=== PATIENT | male | born 1955 | race Caucasian/White ===

== ENCOUNTER 2017-11-22 10:05 | Emergency (ER) | payer MEDICAID, OTHER ==
[~2017-11-22] VITALS: Ht 175.3 cm; Wt 62.3 kg
[2017-11-22] MEDS ORDERED: UNKNOWN BP MED PO (10:46)
[2017-11-22] MEDS ORDERED: COGENTIN PO (10:46)
[2017-11-22] MEDS ORDERED: CHLO200T2 PO (10:46)
[2017-11-22] MEDS ORDERED: HALDOL PO (10:46)
[2017-11-22 10:52] LABS: MEAN CORPUSCULAR HEMOGLOBIN 31.2 pg (27.5-34.5); MEAN CORPUSCULAR HGB CONC 33.7 g/dL (33.2-36.2); MEAN CORPUSCULAR VOLUME 92.6 fL (81-97); MEAN PLATELET VOLUME 8.3 fL (7.4-10.4); PLATELET COUNT 386 x10^3/uL (130-400); RED BLOOD COUNT 4.58 x10^6/uL (4.38-5.82); RED CELL DISTRIBUTION WIDTH 13.7 % (9.4-14.8)
[2017-11-22 11:05] LABS: ALANINE AMINOTRANSFERASE 23 U/L (12-78); ALBUMIN 3.5 g/dL (3.4-5.0); ANION GAP 6 mmol/L (5-15); CALCIUM 9.1 mg/dL (8.5-10.1); CHLORIDE 98 mmol/L (98-107)
[2017-11-22 11:07] LABS: ALKALINE PHOSPHATASE 93 U/L (45-117); BILIRUBIN,TOTAL 0.6 mg/dL (0.2-1.0); CREATININE 1.06 mg/dL (0.7-1.3); TOTAL PROTEIN 8.1 g/dL (6.4-8.2)
[2017-11-22 11:09] LABS: ACETAMINOPHEN < 2 mcg/mL (10-30); SALICYLATE LEVEL < 1.7 mg/dL (2.8-20.0)
[2017-11-22 11:44] LABS: MD YES
[2017-11-22 11:46] LABS: BAND#(MANUAL) 2.04 x10^3/uL; BANDS%(MANUAL) 7 % (0-7); LYMPH#(MANUAL) 2.34 x10^3/uL (1-3.4); LYMPHS% (MANUAL) 8 % (22-44); MONOS#(MANUAL) 2.04 x10^3/uL (0.3-2.7); MONOS% (MANUAL) 7 % (2-9); SEG#(MANUAL) 22.78 x10^3/uL (1.8-6.8); SEGS% (MANUAL) 78 % (42-75)
[2017-11-22 11:48] LABS: <PLATELET ESTIMATE> ADEQUATE; <PLT MORPHOLOGY> NORMAL PLT MORPH; <RBC MORPHOLOGY> NORMAL
[2017-11-22 11:49] LABS: TOXIC GRAN 1+
[2017-11-22 12:00] LABS: AMPHETAMINE SCREEN, URINE Positive (Negative); BARBITURATE SCREEN, URINE Negative (Negative); BENZODIAZEPINE SCREEN, URINE Negative (Negative); CANNABINOID SCREEN, URINE Negative (Negative); COCAINE SCREEN, URINE Negative (Negative); METHADONE SCREEN, URINE Negative (Negative); OPIATE SCREEN, URINE Negative (Negative)
[2017-11-22 12:14] VITALS: BP 143/86
== END 2017-11-22 12:16 | disposition home or self-care (01) ==
LOC: ED 11:53
DX: F28 Other psychotic disorder not due to a substance or known physiological condition (principal); Z91.14 Patient's other noncompliance with medication regimen; Z88.0 Allergy status to penicillin; Z88.5 Allergy status to narcotic agent
CPT/HCPCS: 36415; 80053; 80307; 80329; 85025; 99284; G0480

== ENCOUNTER 2017-11-24 06:57 | Emergency (ER) | payer MEDICAID ==
[~2017-11-24] VITALS: Ht 175.3 cm; Wt 61.0 kg
[~2017-11-24 06:57] MED LIST: CHLO200T2 PO; COGENTIN PO; HALDOL PO; UNKNOWN BP MED PO
[2017-11-24 06:59] VITALS: BP 102/70
== END 2017-11-24 07:58 | disposition home or self-care (01) ==
LOC: ED 07:56
DX: J34.0 Abscess, furuncle and carbuncle of nose (principal); F20.9 Schizophrenia, unspecified
CPT/HCPCS: 93005; 99283

== ENCOUNTER 2018-01-08 12:45 | Observation (INO) | payer MEDICAID ==
[~2018-01-08] VITALS: Ht 172.7 cm; Wt 61.8 kg
[2018-01-08 13:30] LABS: BASOPHILS # (AUTO) 0.05 x10^3/uL (0-0.1); BASOPHILS % (AUTO) 1 % (0-1); EOSINOPHILS # (AUTO) 0.19 x10^3/uL (0-0.4); EOSINOPHILS % (AUTO) 2 % (1-7); LYMPHOCYTES # (AUTO) 2.07 x10^3/uL (1-3.4); LYMPHOCYTES % (AUTO) 22 % (22-44); MD NO; MEAN CORPUSCULAR HGB CONC 33.3 g/dL (32.4-35.8); MEAN CORPUSCULAR VOLUME 89.9 fL (80-100); MEAN PLATELET VOLUME 8.2 fL (7.4-10.4); MONOCYTES # (AUTO) 0.99 x10^3/uL (0.2-0.8); MONOCYTES % (AUTO) 10 % (2-9); NEUTROPHILS # (AUTO) 6.23 x10^3/uL (1.8-6.8); NEUTROPHILS % (AUTO) 65 % (42-75); PLATELET COUNT 333 x10^3/uL (130-400); RED CELL DISTRIBUTION WIDTH 13.8 % (9.6-15.2)
[2018-01-08 13:41] LABS: ALBUMIN 3.2 g/dL (3.4-5.0); ANION GAP 8 mmol/L (5-15); CHLORIDE 106 mmol/L (98-107); CREATININE 0.84 mg/dL (0.55-1.02); SALICYLATE LEVEL < 1.7 mg/dL (2.8-20.0)
[2018-01-08 13:45] LABS: ACETAMINOPHEN < 2 mcg/mL (10-30)
[2018-01-08] MEDS ORDERED: LORazepam 1MG TABLET ONE (18:01)
[2018-01-08] MEDS ORDERED: LORazepam 1MG TABLET PO ONE (18:30)
[2018-01-08 19:43] LABS: AMPHETAMINE SCREEN, URINE Positive (Negative); BARBITURATE SCREEN, URINE Negative (Negative); BENZODIAZEPINE SCREEN, URINE Negative (Negative); CANNABINOID SCREEN, URINE Negative (Negative); COCAINE SCREEN, URINE Negative (Negative); METHADONE SCREEN, URINE Negative (Negative); OPIATE SCREEN, URINE Negative (Negative)
[2018-01-08] MEDS ORDERED: LORazepam 2 MG/ML, 1ML IM PRN (20:30)
[2018-01-08] MEDS ORDERED: DOCUSATE 100 MG CAPSULE PO PRN (20:30)
[2018-01-08] MEDS ORDERED: ONDANSETRON ODT 4 MG PO PRN (20:30)
[2018-01-08] MEDS ORDERED: ACETAMINOPHEN 325 MG TABLET PO PRN (20:30)
[2018-01-08] MEDS ORDERED: LORazepam 1MG TABLET PO PRN (20:30)
[2018-01-08 20:42] VITALS: BP 126/79
[2018-01-08 20:47] LABS: FREE T4 (FREE THYROXINE) 1.08 ng/dL (0.76-1.46); THYROID STIMULATING HORMONE 0.968 mIU/L (0.358-3.740)
[2018-01-08 21:37] LABS: MICROSCOPIC INDICATED
[2018-01-08 21:45] LABS: CULTURE INDICATED? NO
[2018-01-09 07:52] VITALS: BP 117/81
== END 2018-01-09 13:10 ==
LOC: EDBD 12:45 → ED 16:12 → EDSEX 19:01 → INTOOBSV 19:01 → EDIP 19:01 → 2N 20:37
PROVIDERS: ADMIT Internal Medicine; ATTEND Internal Medicine
DX: F23 Brief psychotic disorder (principal); F15.90 Other stimulant use, unspecified, uncomplicated; I10 Essential (primary) hypertension; I25.10 Atherosclerotic heart disease of native coronary artery without angina pectoris; R45.851 Suicidal ideations; F20.0 Paranoid schizophrenia; F17.200 Nicotine dependence, unspecified, uncomplicated; Z95.5 Presence of coronary angioplasty implant and graft; Z91.14 Patient's other noncompliance with medication regimen
CPT/HCPCS: 36415; 80048; 80307; 80329; 81001; 82040; 84439; 84443; 85025; 99285; G0378; G0480

== ENCOUNTER 2019-01-07 03:04 | Emergency (ER) | payer MEDICAID ==
[~2019-01-07] VITALS: Ht 177.8 cm; Wt 60.7 kg
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
[2019-01-07] MEDS ORDERED: NITR0.4T28 SL (03:27)
--- NOTE | 2019-01-07 03:45 | NUR ---
PROVIDED PT WITH URINE CUP, PT STATED HE JUST VOIDED AND UNABLE TO PROVIDE SAMPLE AT THIS TIME
[2019-01-07 04:30] LABS: ALANINE AMINOTRANSFERASE 33 U/L (12-78); ALBUMIN 3.3 g/dL (3.4-5.0); ANION GAP 6 mmol/L (5-15); CALCIUM 8.5 mg/dL (8.5-10.1); CHLORIDE 108 mmol/L (98-107); CREATININE 0.81 mg/dL (0.7-1.3)
[2019-01-07 04:34] LABS: ALKALINE PHOSPHATASE 74 U/L (45-117); BILIRUBIN,TOTAL 0.2 mg/dL (0.2-1.0); TOTAL PROTEIN 6.8 g/dL (6.4-8.2); TROPONIN I < 0.015 ng/mL (0.000-0.045)
--- NOTE | 2019-01-07 04:39 | NUR ---
PT RESTING ON GURNEY WITH EYES CLOSED, DENIES PAIN OR NEEDS, PT STATED HE IS STILL NOT ABLE TO VOID AT THIS TIME, MONITORS IN PLACE, CALL LIGHT WITHIN REACH. PA UPDATED REGARDING PT NOT ABLE TO PROVIDE URINE SAMPLE
[2019-01-07 04:51] LABS: BASOPHILS # (AUTO) 0.04 x10^3/uL (0-0.1); BASOPHILS % (AUTO) 1 % (0-1); EOSINOPHILS # (AUTO) 0.24 x10^3/uL (0-0.4); EOSINOPHILS % (AUTO) 3 % (1-7); LYMPHOCYTES # (AUTO) 1.97 x10^3/uL (1-3.4); LYMPHOCYTES % (AUTO) 23 % (22-44); MD NO; MEAN CORPUSCULAR HEMOGLOBIN 29.5 pg (27.5-34.5); MEAN CORPUSCULAR HGB CONC 32.3 g/dL (33.2-36.2); MEAN CORPUSCULAR VOLUME 91.3 fL (81-97); MEAN PLATELET VOLUME 8.6 fL (7.4-10.4); MONOCYTES % (AUTO) 9 % (2-9); NEUTROPHILS # (AUTO) 5.66 x10^3/uL (1.8-6.8); NEUTROPHILS % (AUTO) 65 % (42-75); PLATELET COUNT 393 x10^3/uL (130-400); RED BLOOD COUNT 3.89 x10^6/uL (4.38-5.82); RED CELL DISTRIBUTION WIDTH 16.8 % (9.4-14.8)
--- NOTE | 2019-01-07 05:05 | NUR ---
REPORT GIVEN TO SOPHIE RN
[2019-01-07 05:09] VITALS: BP 125/75
[2019-01-07 05:21] LABS: AMPHETAMINE SCREEN, URINE Positive (Negative); BARBITURATE SCREEN, URINE Negative (Negative); BENZODIAZEPINE SCREEN, URINE Negative (Negative); CANNABINOID SCREEN, URINE Negative (Negative); COCAINE SCREEN, URINE Negative (Negative); METHADONE SCREEN, URINE Negative (Negative); OPIATE SCREEN, URINE Negative (Negative)
--- NOTE | 2019-01-07 05:41 | NUR ---
THE PT WAS GIVEN BREADFAST BEFORE D/C.
--- NOTE | 2019-01-07 05:42 | NUR ---
THE PT WAS GIVEN D/C INST AND INST NOT TO DO DRUGS. THE PT VERB UNDERSTANDING. THE PT SARAH. PO INTAKE AND IS CP FREE AT THIS TIME. 0/10 PAIN.
== END 2019-01-07 06:09 | disposition home or self-care (01) ==
LOC: ED 05:09
DX: R07.89 Other chest pain (principal); F15.20 Other stimulant dependence, uncomplicated; Z72.9 Problem related to lifestyle, unspecified; F17.200 Nicotine dependence, unspecified, uncomplicated
CPT/HCPCS: 36415; 71046; 80053; 80307; 84484; 85025; 93005; 99284

== ENCOUNTER 2019-04-26 19:32 | Emergency (ER) | payer MEDICAID ==
[~2019-04-26] VITALS: Ht 172.7 cm; Wt 63.7 kg
[~2019-04-26 19:32] MED LIST changes: +NITR0.4T28 SL
--- NOTE | 2019-04-26 19:51 | NUR ---
pt called to room from lobby
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
[2019-04-26] MEDS ORDERED: ONDANSETRON ODT 4 MG ONE (21:29)
--- NOTE | 2019-04-26 21:37 | NUR ---
PT MEDICATED FOR NAUSEA ORDERED.
[2019-04-26 21:39] VITALS: BP 133/84
--- NOTE | 2019-04-26 21:46 | NUR ---
PT REPORTS IS FEELING BETTER S/P ZOFRAN
[2019-04-26] MEDS ORDERED: ONDANSETRON ODT 4 MG PO ONE (22:00)
--- NOTE | 2019-04-26 22:33 | NUR ---
REVIEWED DISCHARGE INSTRUCTIONS AND PRINTED PRESCRIPTION X 1 W/ PT, VERBALIZED UNDERSTANDING TO INFORMATION PROVIDED INCLUDING FOLLOW UP CARE AND RETURN PRECAUTIONS. PT DENIED HEARING VOICES AT TIME OF DISCHARGE, REPORTED NAUSEA HAD IMPROVED. PT AMBULATED FROM ED.
== END 2019-04-26 22:38 | disposition home or self-care (01) ==
LOC: ED 22:32
DX: F15.129 Other stimulant abuse with intoxication, unspecified (principal); F11.129 Opioid abuse with intoxication, unspecified; R11.0 Nausea; R61 Generalized hyperhidrosis; F20.9 Schizophrenia, unspecified; F17.200 Nicotine dependence, unspecified, uncomplicated; Z88.0 Allergy status to penicillin; Z88.5 Allergy status to narcotic agent
CPT/HCPCS: 99283; Q0162

== ENCOUNTER 2019-05-08 17:41 | Inpatient (IN) | payer MEDICAID ==
[~2019-05-08] VITALS: Ht 172.7 cm; Wt 62.1 kg
--- NOTE | 2019-05-08 17:52 | NUR ---
PT BIB EMS FROM [facility], CHECKED IN THIS AM FOR METH AND HEROIN WITHDRAWL, LAST USE THIS AM. PT WAS FOUND TO HAVE ROOM AIR SATS MID 80'S PLACED ON 2L NC O2 SAT 95. PT STS "I GOTTA GET CLEAN I HAVE NO CHOICE." PT ALSO REPORTS PNA DX 2WKS AGO BUT REFUSED TX Addendum: 05/08/19 at 1838 by [email or web address] PT BERRYIES SI/HI
--- NOTE | 2019-05-08 18:02 | NUR ---
PER MENTAL HEALTH TECH WITH PT, PT HAD FEVER OF 101.3 PT WAS GIVEN TYLENOL BUT UNSURE OF DOSAGE.
[2019-05-08] MEDS ORDERED: KETOROLAC 30 MG/1 ML ONE (18:12)
--- NOTE | 2019-05-08 18:14 | NUR ---
PT TO XRAY LABS DRAWN AND SENT TO LAB
--- NOTE | 2019-05-08 18:14 | NUR ---
SPOKE WITH MD ABOUT PT O2 DEMAND, PER MD HOLD ATIVAN AND MORPHINE AT THIS TIME
[2019-05-08 18:25] LABS: MEAN CORPUSCULAR HEMOGLOBIN 28.8 pg (27.5-34.5); MEAN CORPUSCULAR HGB CONC 32.7 g/dL (33.2-36.2); MEAN CORPUSCULAR VOLUME 87.9 fL (81-97); MEAN PLATELET VOLUME 8.5 fL (7.4-10.4); PLATELET COUNT 311 x10^3/uL (130-400); RED BLOOD COUNT 4.19 x10^6/uL (4.38-5.82)
[2019-05-08] MEDS: KETOROLAC 30 MG/1 ML IVPush ONE ×2 (18:28→18:37)
[2019-05-08] MEDS ORDERED: LORazepam 2 MG/ML, 1ML IVPush ONE (18:30)
[2019-05-08] MEDS ORDERED: SODIUM CHLORIDE 0.9% 1,000ML IVBOLUS ONE (18:30)
[2019-05-08] MEDS ORDERED: SODIUM CHLORIDE FLUSH 10ML SYR IVF ONE (18:30)
[2019-05-08] MEDS ORDERED: MORPHINE SULFATE 4 MG/ML, 1ML IVPush PRN (18:30)
--- NOTE | 2019-05-08 18:30 | NUR ---
PT REFUSED TORODOL AT THIS TIME. STS "THAT DOESN'T DO SHIT, I WANT SOMETHING ELSE."
[2019-05-08 18:32] LABS: ALANINE AMINOTRANSFERASE 23 U/L (12-78); ALBUMIN 3.3 g/dL (3.4-5.0); ANION GAP 5 mmol/L (5-15); CALCIUM 8.8 mg/dL (8.5-10.1); CHLORIDE 98 mmol/L (98-107); CREATININE 1.13 mg/dL (0.7-1.3)
[2019-05-08 18:36] LABS: ALKALINE PHOSPHATASE 74 U/L (45-117); BILIRUBIN,TOTAL 0.6 mg/dL (0.2-1.0); TOTAL PROTEIN 7.4 g/dL (6.4-8.2); TROPONIN I < 0.015 ng/mL (0.000-0.045)
[2019-05-08 18:57] LABS: MD YES
[2019-05-08 18:59] LABS: BAND#(MANUAL) 1.09 x10^3/uL; BANDS%(MANUAL) 6 % (0-7); LYMPHS% (MANUAL) 11 % (22-44); MONOS#(MANUAL) 1.09 x10^3/uL (0.3-2.7); MONOS% (MANUAL) 6 % (2-9); SEG#(MANUAL) 14.01 x10^3/uL (1.8-6.8); SEGS% (MANUAL) 77 % (42-75)
[2019-05-08 19:00] LABS: ANISOCYTOSIS 1+
[2019-05-08] MEDS ORDERED: CEFTRIAXONE PMX 1GM/50ML 50 ML IVPB ONE (19:00)
[2019-05-08] MEDS ORDERED: AZITHROMYCIN 500 MG in SODIUM CHLORIDE 0.9% 250 ML IVPB ONE (19:00)
[2019-05-08 19:01] LABS: <PLATELET ESTIMATE> ADEQUATE; <PLT MORPHOLOGY> NORMAL PLT MORPH; PMNS WITH VACUOLES 1+; TOXIC GRAN 1+
[2019-05-08] MEDS ORDERED: CEFTRIAXONE PMX 1GM/50ML 50 ML ONE (19:21)
[2019-05-08] MEDS ORDERED: IBUPROFEN 600 MG TABLET PO PRN (20:30)
[2019-05-08] MEDS ORDERED: ACETAMINOPHEN 325 MG TABLET PO PRN (20:30)
[2019-05-08] MEDS ORDERED: ONDANSETRON 2MG/ML, 2ML IVPush PRN (20:30)
[2019-05-08] MEDS ORDERED: OXYcodone/APAP 5/325MG TABLET PO PRN (20:30)
[2019-05-08] MEDS ORDERED: PROMETHAZINE 25 MG/ML, 1ML IM PRN (20:30)
[2019-05-08] MEDS ORDERED: hydrALAzine 20 MG/ML, 1ML IVPush PRN (20:30)
[2019-05-08 20:43] VITALS: BP 102/55
[2019-05-08] MEDS: AZITHROMYCIN 500 MG in SODIUM CHLORIDE 0.9% 250 ML IV SCH (21:06)
[2019-05-08] MEDS ORDERED: WARF1TAB PO (21:54)
[2019-05-09] MEDS: NICOTINE 21 MG/24 HR PATCH.TD24 TD SCH ×2 (00:30→20:18)
[2019-05-09] MEDS: ENOXAPARIN 40 MG/0.4 ML SQ SCH ×2 (00:30→20:18)
[2019-05-09 01:00] VITALS: BP 105/63
[2019-05-09 01:02] LABS: AMPHETAMINE SCREEN, URINE Positive (Negative); BARBITURATE SCREEN, URINE Negative (Negative); BENZODIAZEPINE SCREEN, URINE Negative (Negative); CANNABINOID SCREEN, URINE Negative (Negative); COCAINE SCREEN, URINE Negative (Negative); METHADONE SCREEN, URINE Negative (Negative); OPIATE SCREEN, URINE Negative (Negative)
[2019-05-09 01:05] LABS: RAPID INFLUENZA A Negative (Negative); RAPID INFLUENZA B Negative (Negative)
[2019-05-09 06:15] LABS: BASOPHILS # (AUTO) 0.02 x10^3/uL (0-0.1); BASOPHILS % (AUTO) 0 % (0-1); EOSINOPHILS # (AUTO) 0.01 x10^3/uL (0-0.4); EOSINOPHILS % (AUTO) 0 % (1-7); LYMPHOCYTES # (AUTO) 1.75 x10^3/uL (1-3.4); LYMPHOCYTES % (AUTO) 12 % (22-44); MD NO; MEAN CORPUSCULAR HEMOGLOBIN 28.6 pg (27.5-34.5); MEAN CORPUSCULAR HGB CONC 32.3 g/dL (33.2-36.2); MEAN CORPUSCULAR VOLUME 88.5 fL (81-97); MEAN PLATELET VOLUME 8.9 fL (7.4-10.4); MONOCYTES # (AUTO) 0.95 x10^3/uL (0.2-0.8); MONOCYTES % (AUTO) 7 % (2-9); NEUTROPHILS # (AUTO) 11.59 x10^3/uL (1.8-6.8); NEUTROPHILS % (AUTO) 81 % (42-75); PLATELET COUNT 275 x10^3/uL (130-400); RED BLOOD COUNT 3.89 x10^6/uL (4.38-5.82); RED CELL DISTRIBUTION WIDTH 18.1 % (9.4-14.8)
[2019-05-09 06:30] LABS: ANION GAP 2 mmol/L (5-15); CALCIUM 8.5 mg/dL (8.5-10.1); CHLORIDE 104 mmol/L (98-107); CREATININE 0.88 mg/dL (0.7-1.3)
[2019-05-09 07:24] VITALS: BP 108/67
[2019-05-09] MEDS: CEFTRIAXONE PMX 1GM/50ML 50 ML IV SCH (08:24)
[2019-05-09] MEDS: ASPIRIN 325 MG TABLET EC PO SCH (08:24)
[2019-05-09] MEDS: GUAIFENESIN 200 MG TABLET PO SCH ×3 (12:00→20:17)
[2019-05-09 13:22] VITALS: BP 97/55
[2019-05-09 14:34] VITALS: BP 99/56
[2019-05-09 19:33] VITALS: BP 110/73
[2019-05-09] MEDS: AZITHROMYCIN 500 MG in SODIUM CHLORIDE 0.9% 250 ML IV SCH (20:17)
[2019-05-10 00:25] VITALS: BP 110/67
[2019-05-10] MEDS: ASPIRIN 325 MG TABLET EC PO SCH (05:43)
[2019-05-10] MEDS: GUAIFENESIN 200 MG TABLET PO SCH ×4 (05:43→22:25)
[2019-05-10 05:49] LABS: CHLORIDE 105 mmol/L (98-107)
[2019-05-10 05:52] LABS: BASOPHILS # (AUTO) 0.02 x10^3/uL (0-0.1); BASOPHILS % (AUTO) 0 % (0-1); EOSINOPHILS # (AUTO) 0.19 x10^3/uL (0-0.4); EOSINOPHILS % (AUTO) 2 % (1-7); LYMPHOCYTES % (AUTO) 14 % (22-44); MD NO; MEAN CORPUSCULAR HEMOGLOBIN 28.4 pg (27.5-34.5); MEAN CORPUSCULAR HGB CONC 32.1 g/dL (33.2-36.2); MEAN CORPUSCULAR VOLUME 88.3 fL (81-97); MEAN PLATELET VOLUME 9.1 fL (7.4-10.4); MONOCYTES # (AUTO) 0.79 x10^3/uL (0.2-0.8); MONOCYTES % (AUTO) 10 % (2-9); NEUTROPHILS # (AUTO) 5.82 x10^3/uL (1.8-6.8); NEUTROPHILS % (AUTO) 73 % (42-75); PLATELET COUNT 246 x10^3/uL (130-400); RED BLOOD COUNT 3.89 x10^6/uL (4.38-5.82); RED CELL DISTRIBUTION WIDTH 17.2 % (9.4-14.8)
[2019-05-10 05:57] LABS: ALANINE AMINOTRANSFERASE 23 U/L (12-78); ALBUMIN 2.7 g/dL (3.4-5.0); ALKALINE PHOSPHATASE 67 U/L (45-117); ANION GAP 7 mmol/L (5-15); BILIRUBIN,TOTAL 0.4 mg/dL (0.2-1.0); CALCIUM 8.3 mg/dL (8.5-10.1); CREATININE 0.76 mg/dL (0.7-1.3); TOTAL PROTEIN 6.9 g/dL (6.4-8.2)
[2019-05-10 07:30] VITALS: BP 92/54
[2019-05-10] MEDS: CEFTRIAXONE PMX 1GM/50ML 50 ML IV SCH (08:20)
[2019-05-10 13:49] VITALS: BP_SYST 108; BP_SYST 128; BP_DIAS 74; BP_DIAS 76
[2019-05-10 19:23] VITALS: BP 121/68
[2019-05-10] MEDS: NICOTINE 21 MG/24 HR PATCH.TD24 TD SCH (19:37)
[2019-05-10] MEDS: AZITHROMYCIN 500 MG in SODIUM CHLORIDE 0.9% 250 ML IV SCH (20:24)
[2019-05-10] MEDS: ENOXAPARIN 40 MG/0.4 ML SQ SCH (20:24)
[2019-05-11 03:09] VITALS: BP 121/76
[2019-05-11 04:38] LABS: BASOPHILS # (AUTO) 0.03 x10^3/uL (0-0.1); BASOPHILS % (AUTO) 1 % (0-1); EOSINOPHILS # (AUTO) 0.28 x10^3/uL (0-0.4); EOSINOPHILS % (AUTO) 5 % (1-7); LYMPHOCYTES # (AUTO) 1.69 x10^3/uL (1-3.4); LYMPHOCYTES % (AUTO) 33 % (22-44); MD NO; MEAN CORPUSCULAR HEMOGLOBIN 28.2 pg (27.5-34.5); MEAN CORPUSCULAR HGB CONC 32.1 g/dL (33.2-36.2); MEAN CORPUSCULAR VOLUME 87.6 fL (81-97); MEAN PLATELET VOLUME 8.8 fL (7.4-10.4); MONOCYTES # (AUTO) 0.71 x10^3/uL (0.2-0.8); MONOCYTES % (AUTO) 14 % (2-9); NEUTROPHILS # (AUTO) 2.48 x10^3/uL (1.8-6.8); NEUTROPHILS % (AUTO) 48 % (42-75); PLATELET COUNT 268 x10^3/uL (130-400); RED BLOOD COUNT 3.87 x10^6/uL (4.38-5.82); RED CELL DISTRIBUTION WIDTH 17.1 % (9.4-14.8)
[2019-05-11 04:43] LABS: ALBUMIN 2.7 g/dL (3.4-5.0); ANION GAP 5 mmol/L (5-15); CALCIUM 8.3 mg/dL (8.5-10.1); CHLORIDE 104 mmol/L (98-107)
[2019-05-11 04:45] LABS: CREATININE 0.78 mg/dL (0.7-1.3)
[2019-05-11] MEDS: ASPIRIN 325 MG TABLET EC PO SCH (07:03)
[2019-05-11] MEDS: GUAIFENESIN 200 MG TABLET PO SCH ×4 (07:03→21:28)
[2019-05-11] MEDS: CEFTRIAXONE PMX 1GM/50ML 50 ML IV SCH (07:23)
[2019-05-11 07:25] VITALS: BP 123/78
[2019-05-11] MEDS: ASPIRIN 81 MG TABLET EC PO SCH (11:33)
[2019-05-11] MEDS ORDERED: OMNIPAQUE 350 MG/ML, 100ML BOTTLE ONE (13:21)
[2019-05-11 13:34] LABS: MICROSCOPIC INDICATED
[2019-05-11 14:00] LABS: CULTURE INDICATED? NO
[2019-05-11 14:22] VITALS: BP 122/73
[2019-05-11] MEDS: CARVEDILOL 3.125 MG TABLET PO SCH (18:26)
[2019-05-11 19:10] VITALS: BP 101/65
[2019-05-11] MEDS: CEFTRIAXONE PMX 2GM/50ML 50 ML IV SCH (19:32)
[2019-05-11] MEDS: ENOXAPARIN 40 MG/0.4 ML SQ SCH (20:17)
[2019-05-11] MEDS: AZITHROMYCIN 500 MG in SODIUM CHLORIDE 0.9% 250 ML IV SCH (20:17)
[2019-05-11] MEDS: NICOTINE 21 MG/24 HR PATCH.TD24 TD SCH (20:18)
[2019-05-11] MEDS: ATORVASTATIN 20 MG TABLET PO SCH (21:28)
[2019-05-12 02:46] VITALS: BP 105/62
[2019-05-12 05:41] LABS: CHLORIDE 106 mmol/L (98-107)
[2019-05-12 05:44] LABS: MEAN CORPUSCULAR HEMOGLOBIN 28.2 pg (27.5-34.5); MEAN CORPUSCULAR HGB CONC 32.4 g/dL (33.2-36.2); MEAN CORPUSCULAR VOLUME 87.3 fL (81-97); PLATELET COUNT 284 x10^3/uL (130-400); RED BLOOD COUNT 3.96 x10^6/uL (4.38-5.82); RED CELL DISTRIBUTION WIDTH 17.4 % (9.4-14.8)
[2019-05-12 05:52] LABS: ALANINE AMINOTRANSFERASE 27 U/L (12-78); ALBUMIN 2.7 g/dL (3.4-5.0); ALKALINE PHOSPHATASE 64 U/L (45-117); ANION GAP 7 mmol/L (5-15); BILIRUBIN,TOTAL 0.2 mg/dL (0.2-1.0); CALCIUM 8.7 mg/dL (8.5-10.1); CREATININE 0.72 mg/dL (0.7-1.3); TOTAL PROTEIN 7.2 g/dL (6.4-8.2)
[2019-05-12] MEDS: ASPIRIN 81 MG TABLET EC PO SCH (05:55)
[2019-05-12] MEDS: CARVEDILOL 3.125 MG TABLET PO SCH ×2 (05:55→18:49)
[2019-05-12] MEDS: GUAIFENESIN 200 MG TABLET PO SCH ×4 (05:55→23:00)
[2019-05-12 06:14] VITALS: BP 121/75
[2019-05-12 06:20] LABS: BASOPHILS # (AUTO) 0.02 x10^3/uL (0-0.1); BASOPHILS % (AUTO) 1 % (0-1); EOSINOPHILS # (AUTO) 0.43 x10^3/uL (0-0.4); EOSINOPHILS % (AUTO) 12 % (1-7); LYMPHOCYTES # (AUTO) 1.51 x10^3/uL (1-3.4); LYMPHOCYTES % (AUTO) 42 % (22-44); MD SCAN; MONOCYTES # (AUTO) 0.48 x10^3/uL (0.2-0.8); MONOCYTES % (AUTO) 13 % (2-9); NEUTROPHILS % (AUTO) 33 % (42-75)
[2019-05-12 13:20] VITALS: BP 106/67
[2019-05-12 19:15] VITALS: BP 102/62
[2019-05-12] MEDS ORDERED: LORazepam 0.5MG TABLET PO PRN (19:30)
[2019-05-12] MEDS: CEFTRIAXONE PMX 2GM/50ML 50 ML IV SCH (19:45)
[2019-05-12] MEDS: ATORVASTATIN 20 MG TABLET PO SCH (20:23)
[2019-05-12] MEDS: AZITHROMYCIN 500 MG in SODIUM CHLORIDE 0.9% 250 ML IV SCH (20:23)
[2019-05-12] MEDS: ENOXAPARIN 40 MG/0.4 ML SQ SCH (20:24)
[2019-05-12] MEDS: NICOTINE 21 MG/24 HR PATCH.TD24 TD SCH (20:28)
[2019-05-13 01:09] VITALS: BP 112/71
[2019-05-13 05:07] LABS: ALBUMIN 2.6 g/dL (3.4-5.0); ANION GAP 3 mmol/L (5-15); BASOPHILS # (AUTO) 0.03 x10^3/uL (0-0.1); BASOPHILS % (AUTO) 1 % (0-1); CALCIUM 8.6 mg/dL (8.5-10.1); CHLORIDE 109 mmol/L (98-107); EOSINOPHILS # (AUTO) 0.64 x10^3/uL (0-0.4); EOSINOPHILS % (AUTO) 15 % (1-7); LYMPHOCYTES # (AUTO) 1.99 x10^3/uL (1-3.4); LYMPHOCYTES % (AUTO) 47 % (22-44); MD NO; MEAN CORPUSCULAR HEMOGLOBIN 28.7 pg (27.5-34.5); MEAN CORPUSCULAR VOLUME 89.7 fL (81-97); MEAN PLATELET VOLUME 8.7 fL (7.4-10.4); MONOCYTES # (AUTO) 0.49 x10^3/uL (0.2-0.8); MONOCYTES % (AUTO) 12 % (2-9); NEUTROPHILS # (AUTO) 1.06 x10^3/uL (1.8-6.8); NEUTROPHILS % (AUTO) 25 % (42-75); PLATELET COUNT 322 x10^3/uL (130-400); RED BLOOD COUNT 4.03 x10^6/uL (4.38-5.82); RED CELL DISTRIBUTION WIDTH 16.7 % (9.4-14.8)
[2019-05-13 05:12] LABS: ALANINE AMINOTRANSFERASE 34 U/L (12-78); ALKALINE PHOSPHATASE 61 U/L (45-117); BILIRUBIN,TOTAL 0.2 mg/dL (0.2-1.0); CREATININE 0.75 mg/dL (0.7-1.3); TOTAL PROTEIN 6.9 g/dL (6.4-8.2)
[2019-05-13] MEDS: GUAIFENESIN 200 MG TABLET PO SCH ×2 (06:22→10:34)
[2019-05-13] MEDS: CARVEDILOL 3.125 MG TABLET PO SCH (06:22)
[2019-05-13] MEDS: ASPIRIN 81 MG TABLET EC PO SCH (06:22)
[2019-05-13 07:30] VITALS: BP 117/74
[2019-05-13] MEDS ORDERED: CEFTRIAXONE PMX 2GM/50ML 50 ML IV SCH (08:30)
[2019-05-13] MEDS ORDERED: AZITHROMYCIN 500 MG in SODIUM CHLORIDE 0.9% 250 ML IV SCH (08:30)
[2019-05-13] MEDS ORDERED: ATOR20TA37 PO (08:39)
[2019-05-13] MEDS ORDERED: ASPI81TA45 PO (08:39)
[2019-05-13] MEDS ORDERED: DOXY100C2 PO (08:39)
[2019-05-13] MEDS ORDERED: CEFD300C37 PO (08:39)
[2019-05-13] MEDS ORDERED: GUAI200T37 PO (08:39)
[2019-05-13] MEDS ORDERED: CARV3.1212 PO (08:39)
== END 2019-05-13 11:30 | disposition home or self-care (01) | DRG 193 ==
LOC: ED 18:12 → EDIP 18:59 → 3N 19:35 → DCLOUNGE 05-13 11:08
PROVIDERS: ADMIT Family Medicine; ATTEND Family Medicine
DX: J15.9 Unspecified bacterial pneumonia (principal); J96.01 Acute respiratory failure with hypoxia; E87.1 Hypo-osmolality and hyponatremia; D64.9 Anemia, unspecified; F11.90 Opioid use, unspecified, uncomplicated; F15.90 Other stimulant use, unspecified, uncomplicated; F17.210 Nicotine dependence, cigarettes, uncomplicated; F20.9 Schizophrenia, unspecified; I25.10 Atherosclerotic heart disease of native coronary artery without angina pectoris; I25.2 Old myocardial infarction; Z88.6 Allergy status to analgesic agent; Z88.0 Allergy status to penicillin; Z79.01 Long term (current) use of anticoagulants; Z82.49 Family history of ischemic heart disease and other diseases of the circulatory system; Z86.718 Personal history of other venous thrombosis and embolism; Z86.73 Personal history of transient ischemic attack (TIA), and cerebral infarction without residual deficits; Z91.14 Patient's other noncompliance with medication regimen; Z95.5 Presence of coronary angioplasty implant and graft
CPT/HCPCS: 36415; 71046; 71275; 80048; 80053; 80307; 81001; 82040; 83605; 83735; 83880; 84100; 84145; 84484; 85025; 87040; 87070; 87205; 87400; 93005; 93306; G0378; J0456; J0696; J1650; J1885; Q9967; J7030; J7050

== ENCOUNTER 2019-06-15 01:19 | Emergency (ER) | payer MEDICAID ==
[~2019-06-15] VITALS: Ht 172.7 cm; Wt 60.5 kg
[~2019-06-15 01:19] MED LIST changes: +ASPI81TA45 PO; +ATOR20TA37 PO; +CARV3.1212 PO; +CEFD300C37 PO; +DOXY100C2 PO; +GUAI200T37 PO; +WARF1TAB PO
[2019-06-15 01:25] VITALS: BP 115/83
== END 2019-06-15 03:19 | disposition home or self-care (01) ==
LOC: ED 01:37
DX: J20.9 Acute bronchitis, unspecified (principal); J44.0 Chronic obstructive pulmonary disease with (acute) lower respiratory infection; F17.210 Nicotine dependence, cigarettes, uncomplicated; I25.2 Old myocardial infarction
CPT/HCPCS: 71046; 93005; 99283

== ENCOUNTER 2019-08-19 02:03 | Emergency (ER) | payer MEDICAID ==
[~2019-08-19] VITALS: Ht 175.3 cm; Wt 62.0 kg
--- NOTE | 2019-08-19 03:26 | NUR ---
Patient presents to ER c/o bilat rib pain and neck pain post fall down stairs. Patient states he drank copious amounts of alcohol, which is not normal for him, and fell from being drunk. Patient states positive LOC. Patient is in NAD. Respirations even and unlabored.
[2019-08-19] MEDS ORDERED: ACETAMINOPHEN 500 MG TABLET ONE (04:17)
[2019-08-19] MEDS ORDERED: ACETAMINOPHEN 500 MG TABLET PO ONE (04:30)
[2019-08-19 04:38] VITALS: BP 155/95
--- NOTE | 2019-08-19 04:38 | NUR ---
Patient c/o pain. Offered Tylenol for pain per mar and patient refused.
[2019-08-19] MEDS ORDERED: DEXAMETHASONE 4 MG TABLET ONE (05:18)
[2019-08-19] MEDS ORDERED: DEXAMETHASONE 4 MG/ML, 5ML ONE (05:20)
--- NOTE | 2019-08-19 06:41 | NUR ---
Patient denied the need for IS or Toradol. Discharge instructions given. All questions and concerns addressed. Patient ambulatory with a steady gait. Belongings with patient.
[2019-08-19] MEDS ORDERED: KETOROLAC 30 MG/1 ML IM ONE (07:00)
== END 2019-08-19 06:42 | disposition home or self-care (01) ==
LOC: ED 06:18
DX: S22.42XA Multiple fractures of ribs, left side, initial encounter for closed fracture (principal); S16.1XXA Strain of muscle, fascia and tendon at neck level, initial encounter; S06.9X1A Unspecified intracranial injury with loss of consciousness of 30 minutes or less, initial encounter; R07.89 Other chest pain; I25.2 Old myocardial infarction; Z86.73 Personal history of transient ischemic attack (TIA), and cerebral infarction without residual deficits; W01.0XXA Fall on same level from slipping, tripping and stumbling without subsequent striking against object, initial encounter; Y93.89 Activity, other specified; Y92.098 Other place in other non-institutional residence as the place of occurrence of the external cause; Y99.8 Other external cause status
CPT/HCPCS: 70450; 71111; 72125; 99285

== ENCOUNTER 2021-01-13 22:14 | Inpatient (IN) | payer MEDICAID ==
[~2021-01-13] VITALS: Ht 172.7 cm; Wt 60.9 kg
[~2021-01-13 22:14] MED LIST changes: -WARF1TAB PO; +WARF1TAB2 PO
--- NOTE | 2021-01-13 22:40 | NUR ---
PT C/O OF BODY ACHES, N/V, FEVER, HEADACHE, FATIGUED SINCE TWO DAYS AGO. ATTACHED TO MONITORS, VSS, NADN. A&OX4, BREATHING EVEN AND UNLBAORED. IS POSITIVE WITH COVID. PT BELIEVES HE HAS COVID. PT RA AT 89%. BED IN LOW, RAILS ENGAGED. CALL LIGHT ON LAP.
--- NOTE | 2021-01-13 22:42 | NUR ---
RESP ISO IN PLACE.
[2021-01-13] MEDS ORDERED: DEXAMETHASONE 4 MG/ML, 1ML ONE (22:52)
[2021-01-13] MEDS ORDERED: DEXAMETHASONE 4 MG/ML, 1ML IVPush ONE (23:00)
[2021-01-13] MEDS ORDERED: SODIUM CHLORIDE FLUSH 10ML SYR IVF ONE (23:00)
[2021-01-13] MEDS ORDERED: SODIUM CHLORIDE 0.9% 1,000ML IVBOLUS ONE (23:00)
--- NOTE | 2021-01-13 23:13 | NUR ---
Patient is resting comfortably in bed. Bed in lowest, rails engaged, call light on lap. Vital Signs within normal limits. WCTM. ATTACHED TO CARD/SP02/BP MONITORS. KRISTIN
[2021-01-13] MEDS ORDERED: AZITHROMYCIN 500 MG in SODIUM CHLORIDE 0.9% 250 ML IVPB ONE (23:30)
[2021-01-13] MEDS ORDERED: CEFTRIAXONE 1,000 MG in DEXTROSE 5% 50 ML IVPB ONE (23:30)
[2021-01-13 23:31] LABS: BASOPHILS % (AUTO) 1 % (0-1); EOSINOPHILS % (AUTO) 0 % (1-7); LYMPHOCYTES % (AUTO) 15 % (22-44); MEAN CORPUSCULAR HEMOGLOBIN 31.5 pg (27.5-34.5); MEAN PLATELET VOLUME 8.6 fL (7.4-10.4); MONOCYTES % (AUTO) 10 % (2-9); NEUTROPHILS % (AUTO) 74 % (42-75); PLATELET COUNT 244 x10^3/uL (130-400); RED CELL DISTRIBUTION WIDTH 13.5 % (9.4-14.8)
[2021-01-13 23:39] LABS: ALANINE AMINOTRANSFERASE 23 U/L (12-78); ALBUMIN 3.2 g/dL (3.4-5.0); ANION GAP 5 mmol/L (5-15); CALCIUM 8.3 mg/dL (8.5-10.1); CHLORIDE 101 mmol/L (98-107); CREATININE 0.78 mg/dL (0.7-1.3)
[2021-01-13 23:44] LABS: ALKALINE PHOSPHATASE 82 U/L (45-117); BILIRUBIN,TOTAL 0.4 mg/dL (0.2-1.0); TOTAL PROTEIN 7.6 g/dL (6.4-8.2); TROPONIN I < 0.015 ng/mL (0.000-0.045)
--- NOTE | 2021-01-14 01:05 | NUR ---
Patient is SLEEPING comfortably in bed. EYES CLOSED. Bed in lowest, rails engaged, call light on lap. Vital Signs within normal limits. WCTM.
--- NOTE | 2021-01-14 01:09 | NUR ---
pt states he takes no meds at home. no med rec
--- NOTE | 2021-01-14 01:16 | NUR ---
gave report to [facility]
[2021-01-14] MEDS ORDERED: GABAPENTIN 300 MG CAPSULE PO PRN (02:30)
[2021-01-14] MEDS ORDERED: ONDANSETRON 2MG/ML, 2ML IVPush PRN (02:30)
[2021-01-14] MEDS ORDERED: ACETAMINOPHEN 325 MG TABLET PO PRN (02:30)
[2021-01-14] MEDS ORDERED: TRAZODONE 50MG TABLET PO PRN (02:30)
[2021-01-14] MEDS ORDERED: ENALAPRILAT 1.25 MG/ML, 2ML IVPush PRN (02:30)
[2021-01-14 03:05] VITALS: BP 107/69
[2021-01-14 04:02] LABS: TROPONIN I < 0.015 ng/mL (0.000-0.045)
[2021-01-14] MEDS: ENOXAPARIN 40 MG/0.4 ML SQ SCH (04:17)
[2021-01-14] MEDS ORDERED: ASPIRIN 325 MG TABLET EC PO SCH (06:00)
[2021-01-14 06:50] VITALS: BP 111/75
[2021-01-14 07:50] LABS: TROPONIN I < 0.015 ng/mL (0.000-0.045)
[2021-01-14 11:03] LABS: C-REACTIVE PROTEIN, QUANT 6.4 mg/dL (0.02-0.49)
[2021-01-14] MEDS: GUAIFENESIN ER 600 MG TABLET PO SCH ×2 (11:28→21:36)
[2021-01-14] MEDS: CLOPIDOGREL 75 MG TABLET PO SCH (11:28)
[2021-01-14] MEDS: ZINC SULFATE 220 MG CAPSULE PO SCH (11:29)
[2021-01-14] MEDS: CHOLECALCIFEROL 5,000u TAB PO SCH (11:29)
[2021-01-14 14:20] VITALS: BP 112/78
[2021-01-14] MEDS: ASCORBIC ACID 500 MG TABLET PO SCH (15:52)
[2021-01-14 19:14] LABS: AMPHETAMINE SCREEN, URINE Positive (Negative); BARBITURATE SCREEN, URINE Negative (Negative); BENZODIAZEPINE SCREEN, URINE Negative (Negative); CANNABINOID SCREEN, URINE Negative (Negative); COCAINE SCREEN, URINE Negative (Negative); METHADONE SCREEN, URINE Negative (Negative); OPIATE SCREEN, URINE Negative (Negative)
[2021-01-14 21:37] VITALS: BP 116/69
[2021-01-15 02:59] VITALS: BP 121/80
[2021-01-15] MEDS: ENOXAPARIN 40 MG/0.4 ML SQ SCH (03:34)
[2021-01-15 06:02] LABS: CHOL/HDL RATIO 2.5; LDL/HDL RATIO 1.2 (0.5-3.0)
[2021-01-15] MEDS: ZINC SULFATE 220 MG CAPSULE PO SCH (08:28)
[2021-01-15] MEDS: GUAIFENESIN ER 600 MG TABLET PO SCH (08:28)
[2021-01-15] MEDS: ASCORBIC ACID 500 MG TABLET PO SCH (08:28)
[2021-01-15] MEDS: CLOPIDOGREL 75 MG TABLET PO SCH (08:28)
[2021-01-15] MEDS: CHOLECALCIFEROL 5,000u TAB PO SCH (08:28)
[2021-01-15 08:35] VITALS: BP 122/81
[2021-01-15] MEDS ORDERED: ASPIRIN 81 MG TABLET CHEW PO SCH (09:00)
[2021-01-15] MEDS ORDERED: DEXAMETHASONE 4 MG/ML, 5ML IVPush SCH (09:00)
== END 2021-01-15 09:10 | disposition left against medical advice (07) | DRG 193 ==
LOC: ED 22:33 → EDIP 01-14 00:28 → 3N 01-14 02:30 → 5SO 01-14 07:47
PROVIDERS: ADMIT Emergency Medicine; ATTEND Internal Medicine
DX: J15.9 Unspecified bacterial pneumonia (principal); J96.01 Acute respiratory failure with hypoxia; I69.351 Hemiplegia and hemiparesis following cerebral infarction affecting right dominant side; F20.9 Schizophrenia, unspecified; I25.10 Atherosclerotic heart disease of native coronary artery without angina pectoris; I10 Essential (primary) hypertension; Z20.822 Contact with and (suspected) exposure to COVID-19; Z66 Do not resuscitate; F17.210 Nicotine dependence, cigarettes, uncomplicated; E78.5 Hyperlipidemia, unspecified; Z53.29 Procedure and treatment not carried out because of patient's decision for other reasons; D64.9 Anemia, unspecified; Z86.718 Personal history of other venous thrombosis and embolism; I25.2 Old myocardial infarction; Z91.14 Patient's other noncompliance with medication regimen; Z91.19 Patient's noncompliance with other medical treatment and regimen; Z95.5 Presence of coronary angioplasty implant and graft; Z88.5 Allergy status to narcotic agent
CPT/HCPCS: 36415; 71045; 80053; 80061; 80307; 83615; 83735; 83880; 84484; 85025; 85379; 86140; 87040; 93005; 96374; 99285; G0378; J0456; J0696; J1100; J1650; U0005; J7030; J7050; U0003